=== PATIENT | male | born 1990 | race Hispanic/Latino ===

== ENCOUNTER 2019-07-22 02:13 | Emergency (ER) | payer SELFPAY ==
[~2019-07-22] VITALS: Ht 182.9 cm; Wt 129.3 kg
--- OUTSIDE RECORDS SUMMARY | 2019-07-22 02:15 | XMS REPORT ---
Author [facility] Address Unknown Phone Unavailable Care Team Providers [employer] Web Developer Name Role Phone Kelly BRANDT Unavailable Unavailable Problems This patient has no known problems. Allergies, Adverse Reactions, Alerts This patient has no known allergies or adverse reactions. Medications This patient has no known medications. Results Test Description Test Time Test Comments Text Results Atomic Results Result Comments CT ABD/PEL WO CONTRAST-HOPD 2018-07-25 18:33:00 [place] [address] Patient Name: ANAI CHRISTENSEN MR #: [id number] : 1990 Age/Sex: 27/M Req #: [id number] Adm Physician: SERGIO BRANDT MD Ordered by: HAROON GARCIA MD Report #: [id number] Location: [facility] Room/Bed: [place] [address] Procedure: [id number] HOPD/CT ABD/PEL WO CONTRAST-HOPD Exam Date: 07/25/18 Exam Time: 1745 REPORT STATUS: Signed EXAM: CT Abdomen and Pelvis WITHOUT contrast INDICATION: Abdominal pain. Nausea and vomiting x2 days. COMPARISON: None. TECHNIQUE: Abdomen and pelvis were scanned utilizing a multidetector helical scanner from the lung base to the pubic symphysis without administration of IV contrast. Absence of intravenous contrast decreases sensitivity for detection of focal lesions and vascular pathology. Coronal and sagittal reformations were obtained. Routine protocol was performed. IV CONTRAST: None ORAL CONTRAST: Water COMPLICATIONS: None RADIATION DOSE: Total DLP: 850.29 mGy*cm Estimated effective dose: (DLP x 0.015 x size factor) mSv CTDIvol has been reviewed. It is below the limits set by the Radiation Protocol Committee (RPC). FINDINGS: LINES and TUBES: None. LOWER THORAX: Unremarkable HEPATOBILIARY: The liver is diffuse hypodense compared to the spleen, consistent with diffuse hepatic diffuse hepatic steatosis. No focal hepatic lesions. No biliary ductal dilation. GALLBLADDER: No radio- opaque stones or sludge. No wall thickening. SPLEEN: No splenomegaly. PANCREAS: Indistinct pancreatic tail with peripancreatic fat stranding. ADRENALS: No adrenal nodules KIDNEYS/URETERS: No hydronephrosis. No cystic or solid mass lesions. No stones. GI TRACT: No abnormal distention, wall thickening, or evidence of bowel obstruction. Appendix is normal. PELVIC ORGANS/BLADDER: Unremarkable. LYMPH NODES: No lymphadenopathy. VESSELS: Unremarkable. PERITONEUM / RETROPERITONEUM: No free air or fluid. BONES: Unremarkable. SOFT TISSUES: Subtle nonspecific soft tissue stranding in the right anterior abdominal wall subcutaneous tissue, possibly related to medication injection. IMPRESSION: 1. Distal pancreatitis. No fluid collections or free fluid. 2. Diffuse hepatic steatosis. Signed by: Dr. Jacobo Shen M.D. on 07/25/2018 6:36 PM Dictated By: JACOBO SHEN MD 35 Transcribed By: JOHN on 07/25/181835 COPY TO: HAROON GARCIA MD
[2019-07-22] MEDS ORDERED: SODIUM CHLORIDE 0.9% 1000ML 1,000 ML ONE ×2 (03:20→04:02)
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
[2019-07-22] MEDS: SODIUM CHLORIDE 0.9% 1000ML 1,000 ML IV STA (03:30)
[2019-07-22] MEDS: MORPHINE SULFATE INJ 4 MG/ML INJ 1ML IV PRN (03:35)
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
[2019-07-22] MEDS ORDERED: PROMETHAZINE HCL (IM) 25 MG/ML VIAL ONE (03:57)
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
[2019-07-22] MEDS: ONDANSETRON HCL INJ 2MG/ML 2ML 2 MG/ML VIAL IV STA (04:05)
== END 2019-07-22 06:31 | disposition other institution (70) ==
LOC: FSED 02:13
DX: S01.01XA Laceration without foreign body of scalp, initial encounter (principal); M54.2 Cervicalgia; S63.501A Unspecified sprain of right wrist, initial encounter; S93.401A Sprain of unspecified ligament of right ankle, initial encounter; S80.212A Abrasion, left knee, initial encounter; S80.211A Abrasion, right knee, initial encounter; V43.62XA Car passenger injured in collision with other type car in traffic accident, initial encounter; Y92.488 Other paved roadways as the place of occurrence of the external cause; E11.9 Type 2 diabetes mellitus without complications
CPT/HCPCS: 70450; 72125; 80053; 85025; 99284; J2270; J2405; J2550; J7030